=== PATIENT | male | born 1930 | race Caucasian/White ===

== ENCOUNTER 2016-07-16 05:30 | Day surgery (SDC) | payer MEDICARE, OTHER ==
[~2016-07-16] VITALS: Ht 180.3 cm; Wt 80.9 kg
--- NOTE | 2016-07-25 08:57 | OR ---
ADMIT: 07/16/2016 RM/LOC: [facility] MR#: [id number] [address] [address] LALA SEWELL [address] [place] [id number] Operative/Delivery Room Report SEX: M AGE: 85 : 1930 SURGERY DATE: 07/16/2016 SURGEON: Tanya Rodriguez MD PREOPERATIVE DIAGNOSIS: Urothelial carcinoma of the bladder. POSTOP DIAGNOSIS: Urothelial carcinoma of the bladder. OPERATION: Bladder biopsy with fulguration. ANESTHETIC: General. INDICATION FOR PROCEDURE: This 85-year-old gentleman has a history of urothelial carcinoma of the bladder and on recent cystoscopy found to have recurrent disease. He has been admitted now for transurethral resection of bladder tumor. DESCRIPTION OF OPERATION: After a suitable general endotracheal anesthetic was obtained, the patient was placed in the dorsal lithotomy position with his genitalia and surrounding skin prepped and draped in usual sterile fashion. The 28-Croatian resectoscope sheath with Porsche obturator was inserted into the bladder and Roberts obturator removed. The Foroblique lens with Snyder- Cameron resecting element was then inserted into the bladder. The trigone was well developed with both ureteral orifices in a normal position with clear efflux of urine from both. Around the right ureteral orifice and extending onto the right lateral sidewall was a sheet of irregular tissue which is branch service representative of recurrent tumor. This pushed off the mucosa with the loop without using electrocautery. This entire area was denuded of this filmy tissue. This then was sent to pathology for final microscopic diagnosis. The ureteral orifice was involved in this area as well. With use of electrocautery, the entire area was cauterized leaving the ureteral orifice intact and uninvolved. The bladder was then further inspected without additional findings. The bladder was then drained, cystoscope removed. The patient having tolerated the procedure was taken to the recovery room in satisfactory condition. ADMIT: 07/16/2016 RM/LOC: [facility] MR#: [id number] [facility] [address] [place] [id number] [place] [address] Operative/Delivery Room Report SEX: M AGE: 85 : 1930 DISCHARGE INSTRUCTIONS: He will return to the office in 1 week for followup. It does appear that the patient would probably benefit from intravesical BCG or mitomycin-C. DISCHARGE MEDICATIONS: Included: 1. Bactrim DS 1 tablet twice a day for 10 days. 2. Hydrocodone 5/325 one to two tabs every 4 hours as need for pain #20 with no refill. He was instructed on increased fluid intake with no special diet given. Tanya Rodriguez MD/ adrienne JOB #: [id number] CC: Tanya Rodriguez MD, Attending Physician Ana Gonzalez, Family Physician HARVINDER Peraza
== END 2016-07-16 09:45 | disposition home or self-care (01) ==
LOC: SSS 05:30
PROC: 0TBB8ZX Excision of Bladder, Via Natural or Artificial Opening Endoscopic, Diagnostic (ICD-10-PCS; principal; 2016-07-16)
DX: C67.9 Malignant neoplasm of bladder, unspecified (principal); I11.0 Hypertensive heart disease with heart failure; I50.9 Heart failure, unspecified; I48.91 Unspecified atrial fibrillation; M19.90 Unspecified osteoarthritis, unspecified site; K21.9 Gastro-esophageal reflux disease without esophagitis; Z95.1 Presence of aortocoronary bypass graft; Z96.642 Presence of left artificial hip joint; Z79.899 Other long term (current) drug therapy; Z88.2 Allergy status to sulfonamides; Z88.8 Allergy status to other drugs, medicaments and biological substances

== ENCOUNTER 2017-01-14 09:07 | Day surgery (SDC) | payer MEDICARE, OTHER ==
[~2017-01-14] VITALS: Ht 180.3 cm; Wt 75.5 kg
--- NOTE | ~2017-01-14 | OR ---
ADMIT: 01/14/2017 RM/LOC: [facility] MR#: [id number] [address] [address] LALA SEWELL [address] [place] [id number] Operative/Delivery Room Report SEX: M AGE: 86 : 1930 SURGERY DATE: 01/14/2017 SURGEON: Lance Mancuso MD PREOPERATIVE DIAGNOSIS: Lung cancer, need for IV access for chemotherapy. POSTOPERATIVE DIAGNOSIS: Lung cancer, need for IV access for chemotherapy. PROCEDURE: Placement of right subclavian PowerPort, catheter length 18 cm placement in superior vena cava. ANESTHESIA: Local MAC anesthesia. ESTIMATED BLOOD LOSS: 10 mL or less. INDICATION FOR PROCEDURE: Please see H and P. DESCRIPTION OF PROCEDURE: After the risks, benefits, possible complications, and the alternatives had been explained, and informed consent had been obtained, the patient was taken back to the operating room, underwent sedation. Surgical field was prepped and draped in a sterile manner. The right infraclavicular area was anesthetized with lidocaine. The Cook needle was introduced in right subclavian vein, guidewire was passed. Intraoperative fluoroscopy showed it to be in good position. Dissected out a pocket large enough for the port. The catheter was cut at 18 cm, placed in the port, and flushed with saline. Dilator and sheath were placed over top of the guidewire. The guidewire and dilator removed. The catheter threaded down the sheath. It was little tight going through some of this area and scar tissue, but it went okay. Ultimately, intraoperative fluoroscopy showed it to be in good position. There was good aspiration and flushing of the port. It was packed with heparin. Sewn to the subcutaneous pocket with 3-0 Vicryl and 4-0 Monocryl for skin. He tolerated it well and was taken to recovery room in stable and satisfactory condition. Lance Mancuso MD/ adrienne JOB #: [id number] CC: Lance Mancuso, Attending Physician Ana Gonzalez, Family Physician
== END 2017-01-14 13:45 | disposition home or self-care (01) ==
LOC: SSS 09:07
PROC: 0JH63XZ Insertion of Tunneled Vascular Access Device into Chest Subcutaneous Tissue and Fascia, Percutaneous Approach (ICD-10-PCS; principal; 2017-01-14)
PROC: 05H533Z Insertion of Infusion Device into Right Subclavian Vein, Percutaneous Approach (ICD-10-PCS; principal; 2017-01-14)
PROC: B546ZZA Ultrasonography of Right Subclavian Vein, Guidance (ICD-10-PCS; principal; 2017-01-14)
PROC: B516YZA Fluoroscopy of Right Subclavian Vein using Other Contrast, Guidance (ICD-10-PCS; principal; 2017-01-14)
DX: C34.90 Malignant neoplasm of unspecified part of unspecified bronchus or lung (principal); I25.10 Atherosclerotic heart disease of native coronary artery without angina pectoris; M19.90 Unspecified osteoarthritis, unspecified site; I10 Essential (primary) hypertension; E78.5 Hyperlipidemia, unspecified; Z95.0 Presence of cardiac pacemaker; J44.9 Chronic obstructive pulmonary disease, unspecified; Z88.2 Allergy status to sulfonamides; Z95.2 Presence of prosthetic heart valve; Z88.8 Allergy status to other drugs, medicaments and biological substances; Z90.49 Acquired absence of other specified parts of digestive tract; Z95.1 Presence of aortocoronary bypass graft; Z98.890 Other specified postprocedural states; Z79.899 Other long term (current) drug therapy; Z79.82 Long term (current) use of aspirin; Z79.01 Long term (current) use of anticoagulants

== ENCOUNTER → 2017-02-01 | Outpatient (CLI) | payer MEDICARE, OTHER | END | disposition home or self-care (01) | LOC: RAD.S 09:21 | DX: C19 Malignant neoplasm of rectosigmoid junction (principal); C67.9 Malignant neoplasm of bladder, unspecified; I10 Essential (primary) hypertension; Z96.642 Presence of left artificial hip joint ==